=== PATIENT | male | born 1975 | race Caucasian/White ===

== ENCOUNTER 2021-03-08 14:08 | Outpatient (REF) | payer OTHER, SELFPAY ==
[2021-03-08 14:32] LABS: COVID-19 Test Positive (Negative)
== END 2021-03-08 14:09 | disposition home or self-care (01) ==
LOC: HO.LAB 14:08
PROVIDERS: Visit Provider Internal Medicine
DX: Z20.822 Contact with and (suspected) exposure to COVID-19 (principal)
CPT/HCPCS: 36415; 87635; C9803

== ENCOUNTER 2021-03-29 15:32 | Outpatient (REF) | payer OTHER, SELFPAY ==
[2021-03-29 15:51] LABS: COVID-19 Test Negative (Negative)
== END 2021-03-29 15:33 | disposition home or self-care (01) ==
LOC: HO.LAB 15:32
PROVIDERS: Visit Provider Internal Medicine
DX: Z20.822 Contact with and (suspected) exposure to COVID-19 (principal)
CPT/HCPCS: 36415; 87635; C9803

== ENCOUNTER 2021-07-28 14:34 | Emergency (ER) | payer OTHER, SELFPAY ==
--- NOTE | ~2021-07-28 | CT_ITS ---
EXAMINATION: CT HEAD WITHOUT CONTRAST CLINICAL INFORMATION: Status post trauma. Burning headache and dizziness. COMPARISON: None TECHNIQUE: Contiguous axial imaging was performed from the skull base to vertex without intravenous administration of contrast. This CT examination was performed using dose optimization techniques as appropriate, variously including the following: *Automated exposure control *Adjustment of mA and/or kV according to patient size (this includes techniques or standardized protocols for targeted exams where dose is matched to indication/reason for exam; i.e. extremities or head) *Use of iterative reconstruction technique DLP: 780c mGy-cm FINDINGS: There is no evidence of acute intracranial hemorrhage or territorial infarction. No abnormal mass effect or midline shift is seen. Roman to white matter differentiation is well preserved. No extra-axial fluid collections are identified. The ventricles are normal in size. There is no abnormal attenuation within the brain parenchyma. The osseous structures and soft tissues are normal. The mastoid air cells and visualized portions of the paranasal sinuses are well aerated. CT/CT head/brain wo con IMPRESSION: No acute intracranial pathology.
[2021-07-28 14:47] VITALS: BP 138/75; PULSE 67; RESP 18; TEMP 36.8; O2SAT 96; BMI 42.5
--- NOTE | 2021-07-28 15:49 | ED.HEATRA ---
HPI - Head Injury General Chief complaint: Head Injury Stated complaint: head pain - injury Time Seen by Provider: 07/28/21 15:48 Source: patient and family Mode of arrival: ambulatory Limitations: language barrier History of Present Illness HPI Narrative: 46 y/o male with history of HTN presenting with posterior headache described as a burning sensation after he hit his head while getting into the car 2 days ago. He got dizzy at the time of the injury but it quickly resolved. He did not sustain any wounds or lacerations but he noticed some swelling in the area where he struck his head. He reports a burning type of ache in this location. He denies vision changes, weakness, numbness, N/V, neck pain. He is not on anticoagluation. He has not taken any medication for the headache. MD Complaint: head injury and head pain Onset (ago): day(s) (2) Mechanism of Injury: other Place: home Loss of Consciousness: no Location of injury: parietal Severity: moderate Severity scale (1-10): 6 Quality: burning Radiation: none Other Injuries: none Associated symptoms: denies other symptoms Related Data Allergies Allergy/AdvReac Type Severity Reaction Status Date / Time No Known Allergies Allergy Verified 07/28/21 14:46 Review of Systems Review of Systems: Constitutional: No Fever, No Chills ENT/Mouth: No Swallowing Difficulty, No dental pain Eyes: No Eye Pain, No Swelling, No Redness Cardiovascular: No Chest Pain, No SOB Respiratory: No Cough, No Sputum Gastrointestinal: No Nausea, No Vomiting, No abdominal Pain Musculoskeletal: No joint pain, No Myalgias Skin: No Skin Lesions, No rash Neuro: No Weakness, No Numbness, + Dizziness, + Headache Psych: + Anxiety/Panic, No Depression Heme/Lymph: No Bruising, No Lymphadenopathy PMFSH Past Medical History Medical History (Updated 07/28/21 @ 17:56 by EILEEN Corbin) Anxiety Depression HTN (hypertension) Social History Social History Advance Directives: No Advance Directives Information Provided: Yes Physical Exam Vital Signs: Vital Signs: Last Vital Signs Temp 98.2 F 07/28/21 14:47 Pulse 67 07/28/21 14:47 Resp 18 07/28/21 14:47 BP 138/75 07/28/21 14:47 Pulse Ox 96 07/28/21 14:47 Body Mass Index 42.5 Appearance: Alert. Oriented X3. No acute distress. Head: normocephalic, atraumtic, no palpable skull fracutre. mild tenderness at the vertex with very mild swelling, localized, no wounds. Eyes: Pupils equal, round and reactive to light. EOMI, no nystagmus ENT: Pharynx normal. Neck: Normal inspection. Neck supple. No cervical spinal tenderness. CVS: Normal heart rate and rhythm. Pulses normal. Respiratory: No respiratory distress. Breath sounds normal. Skin: Skin warm and dry. Normal skin color. Normal skin turgor. No rashes. Extremities: No lower extremity edema. Neuro: Oriented X 3. No motor deficit. No sensory deficit. Ambulates with steady gait Course Course Course Narrative: 46 y/o male presenting with headache 2 days s/p minor head trauma. No LOC. Signs and symptoms consistent with mild concussion. His neuro exam is nonfocal. He would like a CT scan for further evaluation. Explained that concussions are not seen on CT scans but he would like to be checked out. Reevaluation(s) Reevaluation #1: CT scan unremarkable. No mental status changes, vomiting or any other concerning symptoms witnessed while in the ER. His headache is mild. He is stable for discharge home with supportive care and outpatient follow up. Discharge Plan Discharge Clinical Impression: Closed head injury Qualifiers: Encounter type: initial encounter Qualified Code(s): S09.90XA - Unspecified injury of head, initial encounter Patient Disposition: Home, Self-Care Instructions: Head Injury (ED) Additional Instructions: Your CT scan was normal. Recommend REST both mental and physical rest. Avoid screen time. Take Motrin and/or Tylenol as needed for pain. Follow up with your doctor this week. If you develop new or worsening symptoms call 911 or come back to the ER for further evaluation. Murdock tomograf?a computarizada fue normal. Recomendamos DESCANSO tanto mental oralia f?sico. Evite el tiempo frente a la pantalla. Bonesteel Motrin y / o Tylenol seg?n sea necesario para el dolor. Sneha un seguimiento con murdock m?dico esta semana. Si presenta s?ntomas nuevos o que empeoran, llame al 911 o regrese a la fabi de emergencias para jose maria evaluaci?n adicional. Interventions: ED Discharge Assessment Last Done: 07/28/21 18:02 Discharge Date/Time: 07/28/21 18:05 Print Language: Mongolian
== END 2021-07-28 18:05 | disposition home or self-care (01) ==
PROVIDERS: Emergency Provider Emergency Medicine
DX: S09.90XA Unspecified injury of head, initial encounter (principal); G44.309 Post-traumatic headache, unspecified, not intractable; I10 Essential (primary) hypertension; Y29.XXXA Contact with blunt object, undetermined intent, initial encounter; Y93.9 Activity, unspecified; Y92.810 Car as the place of occurrence of the external cause; Y99.9 Unspecified external cause status
CPT/HCPCS: 70450; 99283

== ENCOUNTER 2022-11-07 06:03 | Emergency (ER) | payer OTHER, SELFPAY ==
[2022-11-07 06:48] VITALS: BP 144/73; PULSE 120; RESP 16; TEMP 36.6; O2SAT 98; BMI 34.9
[2022-11-07 07:27] VITALS: BP 138/91; PULSE 119; RESP 14; TEMP 37.7; O2SAT 96
[2022-11-07 08:00] LABS: COVID-19 Test Negative (Negative); IDNOW Serial# 55D5AD1C; Influenza A Positive (Negative); Influenza B2 Negative (Negative)
--- NOTE | 2022-11-07 08:32 | ED.URI ---
HPI - URI/Sore Throat General Chief Complaint: Upper Respiratory Symptoms Stated Complaint: flu, vomiting, SOB Time Seen by Provider: 11/07/22 08:04 Source: patient and american sign language interpreter Mode of arrival: ambulatory Limitations: language barrier History of Present Illness HPI Narrative: 47-year-old male with history of hypertension, hyperlipidemia presents with complaints of 3 days of cough, sneezing, sore throat, headache, tactile temps and chills. Patient denies any difficulty breathing, chest pain, vomiting, diarrhea, neck pain or stiffness or skin rash. Related Data Allergies Allergy/AdvReac Type Severity Reaction Status Date / Time No Known Allergies Allergy Verified 07/28/21 14:46 Review of Systems Review of Systems: Yes all other systems are reviewed and are negative Constitutional: Constitutional: Reports no additional constitutional complaints, Denies body ache(s), Reports chills, Reports fever(s), Reports headache(s) and Denies weakness Eyes: Eyes: Reports no additional eye complaints and Denies change in vision ENT: Reports system reviewed and no additional complaints, except as documented, Denies dizziness, Reports headache(s), Reports nasal congestion, Denies nasal discharge, Denies neck pain and Reports sore throat Cardiovascular: Cardiovascular: Reports no additional cardiovascular complaints, Denies chest pain, Denies leg edema and Denies dyspnea Respiratory: Respiratory: Reports no additional respiratory complaints, Reports cough and Denies dyspnea Gastrointestinal: Gastrointestinal: Reports no additional gastrointestinal complaints, Denies abdominal pain, Denies diarrhea, Denies nausea and Denies vomiting Genitourinary: Genitourinary: Denies urinary incontinence Musculoskeletal: Musculoskeletal: Reports no additional musculoskeletal complaints, Denies back pain, Denies arthralgias, Denies joint swelling, Denies neck pain, Denies numbness and Denies tingling Integumentary/Breasts: Skin/Breast: Reports system reviewed and no additional complaints, except as docu and Denies rash Neurologic: Reports system reviewed and no additional complaints, except as documented, Denies Abnormal speech present, Denies dizziness, Reports headache(s), Denies numbness, Denies tingling and Denies weakness PMFSH Past Medical History Attestation statement: The following information was validated with the patient. Source: old records reviewed and nursing notes reviewed Medical History Anxiety Depression HTN (hypertension) Social History Social History Smoked in Last 30 Days: No Use of substances other than those prescribed or required for medical reasons: No Advance Directives: No Physical Exam Vital Signs: Vital Signs: Last Vital Signs Temp 99.9 F 11/07/22 07:27 Pulse 111 H 11/07/22 09:22 Resp 18 11/07/22 09:22 BP 138/91 H 11/07/22 07:27 Pulse Ox 96 11/07/22 07:27 O2 Del Method 11/07/22 07:27 BMI result Body Mass Index 34.9 Const: General: cooperative, healthy appearing, comfortable and no acute distress Orientation/consciousness: patient oriented x3 Limitations: no limitations HEENT: Head: Yes normal to inspection Ears: hearing grossly normal bilaterally and TM's normal bilaterally General nose exam: Normal external nose present Face and sinus: Yes normal facial exam Mouth: Normal oral and palatal mucosa present Throat: Yes posterior oropharynx normal, Yes tonsils normal and Yes uvula midline Eyes: General: appearance normal, both eyes and all related structures Pupils: Equal, round and reactive pupils present Neck: Neck: Yes normal visual inspection, Yes full ROM, Yes no lymphadenopathy and Yes no meningeal signs Chest: Chest palpation & inspection: normal inspection of the chest Resp: Other: Mild expiratory wheezing Effort & Inspection: normal respiratory effort Cardio: Rate: regular rate Rhythm: regular rhythm Peripheral pulses: Peripheral pulses 2+ throughout GI: Inspection: Yes normal to inspection Palpation (GI): Soft to palpation and nontender Auscultation: normal bowel sounds Back/Spine/Pelvis: Thoracic/Lumbar Spine: thoracic and lumbar spine normal to inspection Skin: General skin exam: no rashes or lesions noted Neuro: General: patient oriented x3, no meningeal signs, no focal motor deficits and normal sensation to monofilament Cranial nerves: Yes Equal, round and reactive pupils present Cognition (Neuro): normal cognition Speech: No Abnormal speech present Gait exam (Neuro): Normal gait present Motor exam (neuro): 5/5 motor strength present throughout Extrem: General: Yes normal to inspection, Yes no pedal edema and Yes no calf tenderness Course Course Course Narrative: 47-year-old male who flu like symptoms for 3 days. Flu screen is positive for influenza A. Patient having mild expiratory wheezing. Will give albuterol MDI. Vitals with low-grade fever mild tachycardia. Patient can take antipyretic and increase fluids at home. Reviewed worrisome signs and symptoms of when to return to the emergency room. Comfortable plan for discharge home. Medications Administered Discontinued Medications Generic Name Dose Route Start Last Admin Trade Name Freq PRN Reason Stop Dose Admin Albuterol Sulfate 2 puff 11/07/22 08:36 11/07/22 09:17 Albuterol Sulfate 90 Mcg 8 Gm Inhaler INHALE 11/07/22 08:37 2 puff ONCE ONE Administration Medical Decision Making Medical Decision Making MDM Narrative: 47-year-old male here with flu-like symptoms for 3 days. On arrival patient with low-grade fever, mild tachycardia likely secondary to fever. Mild expiratory wheezing. Overall well-appearing, nontoxic, exam otherwise is benign. Differential Diagnoses: Differential diagnosis (Viral syndrome, otitis media, pharyngitis) Lab Attestation: I reviewed the patient's lab results. (Flu A positive) Prescription medication was considered but ultimately not given after discussion with patient/family. (e.g., pain medication, antiviral, antibiotic): Prescriptions considered but not given Additional Comments: Tamiflu-due to length of symptoms would not be helpful. Discussed with patient Discharge Plan Discharge Clinical Impression: Influenza Patient Disposition: Home, Self-Care Instructions: Influenza (ED) Additional Instructions: La prueba de gripe es positiva. En beth punto discutimos que Tamiflu no ser?a ?til. Las pruebas de covid y rsv son negativas. Alterne motrin/tylenol para el dolor o la fiebre. Aumente los l?quidos en casa. Referrals: Tracee Martinez PA-C [Primary Care Provider] - 1 week Interventions: ED Discharge Assessment Last Done: 11/07/22 09:30 Discharge Date/Time: 11/07/22 09:30 Print Language: Fijian
[2022-11-07] MEDS: Albuterol Sulfate 90 MCG 8 GM INHALER 2 PUFF INHALE (09:17)
[2022-11-07 09:22] VITALS: PULSE 111; RESP 18; O2SAT 96
== END 2022-11-07 09:30 | disposition home or self-care (01) ==
PROVIDERS: Emergency Provider Emergency Medicine Emergency Medical Services; PCP Physician Assistant
DX: J10.1 Influenza due to other identified influenza virus with other respiratory manifestations (principal); R06.02 Shortness of breath; I10 Essential (primary) hypertension; E78.5 Hyperlipidemia, unspecified; Z20.822 Contact with and (suspected) exposure to COVID-19; Z79.899 Other long term (current) drug therapy
CPT/HCPCS: 87502; 87635; 99284